=== PATIENT | female | born 1990 | race Hispanic/Latino ===

== ENCOUNTER 2018-03-18 20:20 | Emergency (ER) | payer OTHER ==
[~2018-03-18 20:20] MED LIST: PRENATAL + DHA1 EACH PO
== END 2018-03-18 20:45 | disposition short-term general hospital (02) ==
LOC: FSED 20:20
DX: M54.2 Cervicalgia (principal)

== ENCOUNTER 2018-03-19 07:59 | Emergency (ER) | payer OTHER ==
[~2018-03-19] VITALS: Ht 154.9 cm; Wt 75.3 kg
--- OUTSIDE RECORDS SUMMARY | 2018-03-19 08:02 | XMS REPORT | Continuity of Care Document ---
Author Author [facility] Organization [facility] Address [address] [place] [address] Phone Unavailable Care Team Providers Care Cath Lab Name Role Phone NO, PCP PCP Unavailable Insurance Providers Guarantor Benita Ramires Address [address] [place] [address] [facility]ayer [facility] Policy Number [id number] Subscriber's Name Benita Ramires Relationship 18 Self / Same As Patient Group Number [id number] Group Name [facility] Policy Number [id number] Subscriber's Name RamiresZacharyBenita Relationship 18 Self / Same As Patient Advance Directives Directive Response Recorded Date/Time Does the patient have an advance directive? No 08/08/14 10:06am If yes, is advance directive on file with [facility]? No 08/08/14 10:06am If not on file with [facility] will patient provide a copy? No 08/08/14 10:06am Problems No problem information available. Medications Current Home Medications Medication Dose Units Route Directions Days Qty Instructions Start Date Vit #91/Fe Fum/Fa/Dha ( + Dha Combo Pack) 1 Each Combo..pkg 1 Dose Oral Daily Social History No social history information available. Hospital Discharge Instructions No hospital discharge instruction information available. Plan of Care Discharge Date 03/18/18 8:45pm Disposition REQUEST WITHDRAWN FOR MSE Condition at Discharge Other Prescriptions See Medication Section Functional Status No functional status information available. Allergies, Adverse Reactions, Alerts No known allergies. Immunizations No immunization information available. Vital Signs No vital sign information available. Results No relevant diagnostic test, laboratory data and/or discharge summary information available. Procedures No procedure information available. Encounters Encounter Location Arrival/Admit Date Discharge/Depart Date Attending Provider Departed Emergency Room [facility] 03/18/18 8:20pm 8:45pm BERNIE MCNAMARA MD
[2018-03-19] MEDS ORDERED: SODIUM CHLORIDE FLUSH 10 ML SYR INJ PRN (08:30)
[2018-03-19] MEDS ORDERED: IOPAMIDOL 300MG/ML 100 ML INFUS..BTL IV ONE (09:00)
[2018-03-19 10:16] VITALS: BP 112/80
== END 2018-03-19 10:19 | disposition home or self-care (01) ==
LOC: FSED 08:01
DX: M54.2 Cervicalgia (principal); S16.1XXA Strain of muscle, fascia and tendon at neck level, initial encounter; S30.1XXA Contusion of abdominal wall, initial encounter; V43.52XA Car driver injured in collision with other type car in traffic accident, initial encounter; Y92.488 Other paved roadways as the place of occurrence of the external cause
CPT/HCPCS: 74177; 80048; 81003; 81025; 85025; 99283; Q9967

== ENCOUNTER 2018-04-23 21:20 | Emergency (ER) | payer OTHER ==
[~2018-04-23] VITALS: Ht 154.9 cm; Wt 77.8 kg
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
[2018-04-24 00:29] VITALS: BP 113/71
== END 2018-04-23 23:30 | disposition home or self-care (01) ==
LOC: FSED 21:20
DX: R00.2 Palpitations (principal); F41.1 Generalized anxiety disorder
CPT/HCPCS: 93005

== ENCOUNTER → 2018-05-31 | Day surgery (SDC) | payer OTHER, MEDICARE ==
[~2018-05-31] MED LIST changes: +FENTANYL CITRATE/PF 100MCG/2 ML INJ ONE; +LIDOCAINE HCL 2% LOCAL INJ 5 ML SDV VIAL INJ ONE; +MIDAZOLAM HCL 2 MG/2 ML VIAL ONE; +OMEPRAZOLE40 MG PO; +PROPOFOL IV EMULSION 10 MG/ML 50 ML VIAL ONE; +TYLENOL PO
--- NOTE | 2018-05-31 13:07 | Operative Report ---
DATE OF PROCEDURE: May 31, 2018 REFERRING PHYSICIAN: Dr. Jason Gaitan PROCEDURE PERFORMED: Esophagogastroduodenoscopy with biopsies. INDICATIONS FOR ESOPHAGOGASTRODUODENOSCOPY: Heartburn, indigestion, early satiety. MEDICATION: Patient was done under MAC. Please see anesthesiologist's note. PROCEDURE: With patient in left lateral decubitus position, the flexible Olympus gastroscope was introduced into the esophagus under direct visualization without any difficulty. There was some patchy erythema noted in the distal esophagus. The scope was then advanced with ease into the stomach. Mucosa overlying the antrum and the body revealed some diffuse erythema and mild to moderate edema and biopsies were obtained and sent to stain for H. pylori. Pylorus appeared to be of normal contour and shape. Was intubated with ease, and the scope was advanced all the way to the 2nd portion of the duodenum. Biopsies were obtained from the proximal 2nd portion to rule out sprue. Mucosa overlying the duodenal bulb appeared to be within normal limits. The scope was then withdrawn back into the stomach and retroflexed. Mucosa overlying the fundus and cardia appeared to be within normal limits. The scope was then straightened out and was subsequently withdrawn. Patient tolerated the procedure well. IMPRESSION 1. Distal esophagitis. 2. Gastritis biopsied. Biopsies sent to stain for H. pylori. 3. Rule out sprue. PLAN: Follow up histology. Initiate Protonix 40 mg 1 p.o. q.a.m. a.c. Job#: [id number] DG cc:JASON GAITAN MD
== END | disposition home or self-care (01) ==
LOC: OR 09:42
PROVIDERS: ATTEND Internal Medicine Gastroenterology
DX: K29.50 Unspecified chronic gastritis without bleeding (principal); K20.9 Esophagitis, unspecified; K21.9 Gastro-esophageal reflux disease without esophagitis; F41.9 Anxiety disorder, unspecified; Z68.32 Body mass index [BMI] 32.0-32.9, adult
CPT/HCPCS: 43239; 81025; J2001; J2250

== ENCOUNTER 2019-02-21 15:04 | Emergency (ER) | payer MEDICARE, OTHER ==
[~2019-02-21] VITALS: Ht 154.9 cm; Wt 83.5 kg
[~2019-02-21 15:04] MED LIST changes: -FENTANYL CITRATE/PF 100MCG/2 ML INJ ONE; -LIDOCAINE HCL 2% LOCAL INJ 5 ML SDV VIAL INJ ONE; -MIDAZOLAM HCL 2 MG/2 ML VIAL ONE; -PROPOFOL IV EMULSION 10 MG/ML 50 ML VIAL ONE
[2019-02-21 18:15] VITALS: BP 115/85
== END 2019-02-21 18:24 | disposition home or self-care (01) ==
LOC: FSED 15:04
DX: R42 Dizziness and giddiness (principal); F41.1 Generalized anxiety disorder; K21.9 Gastro-esophageal reflux disease without esophagitis
CPT/HCPCS: 80053; 80307; 81003; 81025; 85025; 93005; 99283

== ENCOUNTER 2022-05-27 17:02 | Emergency (ER) | payer OTHER ==
[~2022-05-27] VITALS: Ht 154.9 cm; Wt 92.2 kg
[2022-05-27] MEDS ORDERED: FLUOXETINE HCL10 MG PO (17:28)
== END 2022-05-27 18:32 | disposition home or self-care (01) ==
LOC: FSED 17:11
DX: R06.00 Dyspnea, unspecified (principal); R20.8 Other disturbances of skin sensation; R42 Dizziness and giddiness; F41.9 Anxiety disorder, unspecified
CPT/HCPCS: 70450; 80053; 80307; 81003; 81025; 82553; 84484; 85025; 93005; 99283

== ENCOUNTER 2022-10-01 13:56 | Emergency (ER) | payer OTHER ==
[~2022-10-01] VITALS: Ht 154.9 cm; Wt 89.8 kg
[~2022-10-01 13:56] MED LIST changes: +FLUOXETINE HCL10 MG PO
[2022-10-01] MEDS ORDERED: GABAPENTIN100 MG PO (17:23)
== END 2022-10-01 17:33 | disposition home or self-care (01) ==
LOC: FSED 14:53
DX: R42 Dizziness and giddiness (principal); K21.9 Gastro-esophageal reflux disease without esophagitis; F41.9 Anxiety disorder, unspecified
CPT/HCPCS: 36415; 81025; 82948; 93005; 99283